=== PATIENT | male | born 1985 | race Caucasian/White ===

== ENCOUNTER 2021-07-21 08:26 | Emergency (ER) | payer OTHER, SELFPAY ==
--- NOTE | ~2021-07-21 | XR_ITS ---
XR hand RT min 3V DATE: 07/21/2021 08:48 INDICATION: Palmar pain and dorsal swelling of right hand TECHNIQUE: 3 views COMPARISON: None FINDINGS: No fracture or dislocation, periosteal reaction or bone destruction, joint space narrowing, erosive change or chondrocalcinosis. IMPRESSION: Negative Reviewed, dictated and finalized at location A. IMPRESSION: Negative
--- NOTE | 2021-07-21 08:28 | ED.UPPEXIN ---
HPI - Extremity Injury (Upper) General Chief Complaint: Extremity Injury, Upper Stated Complaint: right hand swollen Time Seen by Provider: 07/21/21 08:28 Source: patient, family and RN notes reviewed History of Present Illness HPI narrative: Patient is a 36-year-old male who presents the urgent care with complaints of right hand pain and swelling. Patient denies of any known injury but states he was carrying bricks approximately 2 to 3 days ago and believes he may have sprained his hand. Patient states that it became more painful and swollen over the last 24 hours. Denies of any fevers. Patient states he has been taking ibuprofen for the pain. Patient is left-hand dominant. No other acute complaints. No acute distress noted. Patient aware of the plan of care. Some parts of this dictation were generated by voice recognition software and may contain typographical and/or grammatical inaccuracies. Related Data Allergies Allergy/AdvReac Type Severity Reaction Status Date / Time No Known Allergies Allergy Verified 07/21/21 08:57 Review of Systems Review of Systems: CONSTITUTIONAL: Denies fever, chills, or sweats. EYES: Denies visual changes, redness, or discharge. ENT: Denies rhinorrhea, congestion, sore throat, or otalgia. CARDIOVASCULAR: Denies chest pain, palpitations, or edema. RESPIRATORY: Denies cough or dyspnea. GASTROINTESTINAL: Denies abdominal pain, nausea, vomiting, or diarrhea. GENITOURINARY: Denies dysuria or hematuria. SKIN: Denies rash or itching. MUSCULOSKELETAL: Reports of right hand pain and swelling NEUROLOGIC: Denies headache, numbness, or weakness. All other systems reviewed are negative, except as documented in HPI. PMFSH Comments At the time of my signature, I reviewed and agree with the nursing past medical, surgical, social, and family history. There is no relevant family history pertinent to the patient complaint. Exam Narrative: GENERAL: This is a well-nourished, well-developed patient, in no apparent distress. HEAD: normocephalic, atraumatic. EYES: PERRL. Sclera clear/white. Vision is grossly intact. EARS: External ears normal NOSE: External nose normal with no obvious nasal discharge, nares without redness, no rhinorrhea. THROAT: Mucous membranes moist NECK: Neck supple CARDIOVASCULAR: Regular rate and rhythm without murmurs, gallops, or rubs. RESPIRATORY: Clear to auscultation. Breath sounds equal bilaterally. No wheezes, rales, or rhonchi. SKIN: warm, intact with no suspicious lesions or rash, good texture and turgor. NEURO: awake, alert, and oriented to person, place and time. There were no obvious focal neurologic abnormalities. EXTREMITIES: Moderate dorsal right hand swelling extending to the ulnar aspect with mild erythema and moderate tenderness. Range of motion within normal limits. Positive strong right radial pulse with capillary refill less than 2 seconds Course Course Level of Care: Express Care Visit Vital Signs Vital signs: Vital Signs Temperature 97.6 F 07/21/21 08:33 Pulse Rate 88 07/21/21 08:33 Respiratory Rate 16 07/21/21 08:33 Blood Pressure 133/81 07/21/21 08:33 Pulse Oximetry 100 07/21/21 08:33 Temperature 97.6 F 07/21/21 08:33 Pulse Rate 88 07/21/21 08:33 Respiratory Rate 16 07/21/21 08:33 Blood Pressure 133/81 07/21/21 08:33 Pulse Oximetry 100 07/21/21 08:33 Reviewed MDM - Extremity Injury (Upper) MDM Narrative Medical decision making narrative: Reviewed x-ray results with the patient. X-ray was negative for fracture or deformity. Due to redness and swelling, will treat to cover both tendon injury and cellulitis. Advised the patient to complete the oral antibiotic regimen and steroids as prescribed. Be sure to eat and drink with the medication. Take the ibuprofen as needed. Increase your water intake and use ice for comfort. May use an Pedro wrap to the injury but do not put any occlusive brace over the hand. Avoid any str
[2021-07-21 08:33] VITALS: BP 133/81; PULSE 88; RESP 16; TEMP 36.4; O2SAT 100
== END 2021-07-21 09:18 | disposition home or self-care (01) ==
PROVIDERS: Emergency Provider Nurse Practitioner Family
DX: M79.89 Other specified soft tissue disorders (principal)
CPT/HCPCS: 73130; 99213; G0463

== ENCOUNTER 2021-10-20 15:47 | Emergency (ER) | payer OTHER, SELFPAY ==
--- NOTE | ~2021-10-20 | XR_ITS ---
EXAM: XR hand LT min 3V DATE: 10/20/2021 16:47 HISTORY: swelling, no injury . COMPARISON: None available. FINDINGS: Normal mineralization. No fracture or dislocation. No lytic or blastic lesion. Joint space s are maintained. No erosion or periosteal change. Soft tissues within normal limits. IMPRESSION: No acute osseous finding in the left hand. Reviewed, dictated and finalized at location K.
[2021-10-20 16:01] VITALS: BP 153/102; PULSE 112; RESP 16; TEMP 37.1; O2SAT 100
[2021-10-20 16:23] VITALS: BP 153/102; PULSE 112; RESP 16; TEMP 37.1; O2SAT 100
--- NOTE | 2021-10-20 16:25 | ED.EXTPRO ---
HPI - Extremity Problem General Chief complaint: Extremity Problem,Nontraumatic Stated complaint: Left Hand/Wrist Pain Time Seen by Provider: 10/20/21 16:25 Source: patient Mode of arrival: ambulatory Limitations: no limitations History of Present Illness HPI Narrative: 36 y/o male presented for c/o left hand pain and swelling since this morning. This has been worsening over the last week. Endorses middle three fingers feel cool and numb at times. Denies specific injury. Also reports right hand pain and swelling not resolved since June when treated for cellulitis vs tendonitis. Pt has not been working since then. Related Data Allergies Allergy/AdvReac Type Severity Reaction Status Date / Time No Known Allergies Allergy Verified 10/20/21 16:23 Review of Systems Review of Systems: CONSTITUTIONAL: Denies body aches, fever, chills EYES: Denies visual changes ENT: Denies rhinorrhea, congestion CARDIOVASCULAR: Denies chest pain, palpitations, or edema. RESPIRATORY: Denies dyspnea. SKIN: Denies rash, itching, or wounds. MUSCULOSKELETAL:reports left hand pain and swelling NEUROLOGIC: Denies headache All systems reviewed & are unremarkable except as noted in HPI and below PMFSH Comments At time of signature, I have reviewed and agree with nursing past medical, surgical, social and family history unless otherwise noted. Please see nursing chart for further information. There is no relevant family history pertinent to the presenting complaint Exam Narrative: GENERAL: Well-appearing CHEST: Speaks in full sentences. No respiratory distress. HEART: Regular rate and rhythm. Normal and equal peripheral pulses. EXTREMITIES: Left hand with mild swelling to dorsal surface; no redness or bruising; multiple scattered abrasions, no apparent s/s infection; hand has normal strength and sensation. Tenderness with palpation to wrist. No obvious deformity; alignment normal, pulse palpable and equal bilaterally, skin warm, dry, pink. Capillary refill less than 3 seconds. SKIN: Warm, dry, no rash. NEURO: Alert and oriented x3. PSYCH: anxious Course Course Emergency Course: Patient is aware of diagnosis, understands and agrees to treatment plan. Anticipatory guidance given. Patient agrees to follow-up as directed and is aware of reasons to seek care at the emergency department. Portions of this record may have been created with voice recognition software Level of Care: Express Care Visit Vital Signs Vital signs: Vital Signs Temperature 98.8 F 10/20/21 16:01 Pulse Rate 112 H 10/20/21 16:01 Respiratory Rate 16 10/20/21 16:01 Blood Pressure 153/102 H 10/20/21 16:01 Pulse Oximetry 100 10/20/21 16:01 Oxygen Delivery Room Air 10/20/21 16:01 Temperature 98.8 F 10/20/21 16:23 Pulse Rate 112 H 10/20/21 16:23 Respiratory Rate 16 10/20/21 16:23 Blood Pressure 153/102 H 10/20/21 16:23 Pulse Oximetry 100 10/20/21 16:23 Oxygen Delivery Room Air 10/20/21 16:23 Reviewed MDM - Extremity (Nontraumatic) MDM Narrative Medical decision making narrative: X-ray reviewed with patient. Will treat as hand sprain, no apparent s/s cellulitis. Advised RICE therapy and supportive measures. Declined DESI, states he has a wrist splint at home. Applied ice pack and he endorses significant improvement in pain. He is also advised to follow-up with a primary care provider regarding elevated bp. Verbalizes understanding. He is appropriate for outpatient treatment and follow-up. Differential Diagnosis Differential diagnosis: Likely other (hand sprain/strain, cellulitis, gout, arthritis) Imaging Data Radiologist's impression: Ordering Physician: Nereyda Restrepo APRN Date of Service: 10/20/21 Procedure(s): XR hand LT min 3V Accession Number(s): [id number] cc: Nereyda Restrepo APRN; [employer] ENGINEERING MANAGER PHYSICIAN~ EXAM:? XR hand LT min 3V DATE: 10/20/2021 16:47 HISTORY: swelling, no injury . COMPARISON:? None a
== END 2021-10-20 17:19 | disposition home or self-care (01) ==
PROVIDERS: Emergency Provider Nurse Practitioner Family
DX: R22.32 Localized swelling, mass and lump, left upper limb (principal); M62.82 Rhabdomyolysis
CPT/HCPCS: 73130; 99213; G0463

== ENCOUNTER 2022-09-19 15:09 | Emergency (ER) | payer OTHER, SELFPAY ==
[2022-09-19 15:26] VITALS: BP 127/91; PULSE 79; RESP 16; TEMP 36.2; O2SAT 100
--- NOTE | 2022-09-19 15:42 | ED.WOUNDLAC ---
HPI - Wound/Laceration General Chief Complaint: Wound/Laceration Stated Complaint: [place] Hand Injury Source: patient and RN notes reviewed Limitations: no limitations History of Present Illness HPI narrative: Patient is a 37-year-old male who presents to the [facility] with complaints of laceration to his right hand. Patient states that he was using a hatchet to chop down a tree. Patient states that he laid the hatchet on a tree branch and the tree moved, and the hatchet fell down and hit him in the right hand. Patient presents with a 5 cm laceration to the dorsal aspect of his right hand. Bleeding is controlled. He has full range of motion of the right hand. Sensation is intact and he denies numbness. Cap refill is normal. Pulses present. States that his last tetanus was within the last 3 years. Related Data Home Medications Medication Instructions Recorded Confirmed indomethacin 50 mg capsule mg 09/19/22 prednisone 20 mg tablet mg 09/19/22 Allergies Allergy/AdvReac Type Severity Reaction Status Date / Time No Known Allergies Allergy Verified 10/20/21 16:23 Review of Systems Review of Systems: CONSTITUTIONAL: Denies fever, chills, or sweats. EYES: Denies visual changes, redness, or discharge. ENT: Denies otalgia and sore throat CARDIOVASCULAR: Denies chest pain, palpitations, or edema. RESPIRATORY: Denies cough or dyspnea. GASTROINTESTINAL: Denies abdominal pain, nausea, vomiting, or diarrhea. GENITOURINARY: Denies dysuria or hematuria. SKIN: 6 cm laceration to right hand. MUSCULOSKELETAL: Denies back pain, joint pain, or myalgia. NEUROLOGIC: Denies headache, numbness, or weakness. Pertinent positives per HPI. PMFSH Comments At the time of my signature, I reviewed and agree with the nursing past medical, surgical, social, and family history. There is no relevant family history pertinent to the patient complaint. Exam Narrative: GENERAL: This is a well-nourished, well-developed patient, in no apparent distress. HEAD: normocephalic, atraumatic. EYES: Sclera clear/white. Vision is grossly intact. EARS: External ears normal. Hearing grossly intact. NOSE: External nose normal with no obvious nasal discharge, nares without redness, no rhinorrhea. THROAT: Mucous membranes moist, posterior pharynx clear. NECK: Neck supple, non-tender without lymphadenopathy, masses or thyromegaly. CARDIOVASCULAR: Regular rate and rhythm without murmurs, gallops, or rubs. RESPIRATORY: Clear to auscultation. Breath sounds equal bilaterally. No wheezes, rales, or rhonchi. GASTROINTESTINAL: Abdomen soft, non-tender, nondistended. Bowel sounds are active. No hepato-splenomegaly, or palpable masses. No guarding. SKIN: warm, intact with no suspicious lesions or rash, good texture and turgor. 6 cm laceration to the dorsal aspect of the right hand. Bleeding controlled. Full ROM of right hand. Sensation intact. Cap refill is normal. NEURO: awake, alert, and oriented to person, place and time. There were no obvious focal neurologic abnormalities. Course Course Level of Care: Express Care Visit Vital Signs Vital signs: Vital Signs Temperature 97.1 F L 09/19/22 15:26 Pulse Rate 79 09/19/22 15:26 Respiratory Rate 16 09/19/22 15:26 Blood Pressure 127/91 H 09/19/22 15:26 Pulse Oximetry 100 09/19/22 15:26 Oxygen Delivery Room Air 09/19/22 15:26 Temperature 97.1 F L 09/19/22 15:26 Pulse Rate 79 09/19/22 15:26 Respiratory Rate 16 09/19/22 15:26 Blood Pressure 127/91 H 09/19/22 15:26 Pulse Oximetry 100 09/19/22 15:26 Oxygen Delivery Room Air 09/19/22 15:26 Reviewed Procedures Laceration Laceration 1: Date: 09/19/22 Time: 16:10 Site: hand Side (If applicable): right Size (cm): 6 Description: linear Depth: simple, single layer Local Anesthetic: lidocaine 1% Amount of anesthesia used (mL): 3 Pre-repair: irrigated ====== Skin
== END 2022-09-19 16:27 | disposition home or self-care (01) ==
PROVIDERS: Emergency Provider Nurse Practitioner
DX: S61.411A Laceration without foreign body of right hand, initial encounter (principal); W27.8XXA Contact with other nonpowered hand tool, initial encounter; M62.82 Rhabdomyolysis; M10.9 Gout, unspecified
CPT/HCPCS: 12002; 99212; G0463